=== PATIENT | female | born 1995 | race Caucasian/White ===

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

== ENCOUNTER 2017-04-26 12:10 | Outpatient (CLI) | payer OTHER ==
[~2017-04-26] VITALS: Ht 167.6 cm; Wt 77.0 kg
[2017-04-26] MEDS ORDERED: PRENTAB9 PO (12:23)
[2017-04-26 12:31] VITALS: BP 113/70
[2017-04-26 13:16] VITALS: BP 113/62
--- NOTE | 2017-04-26 22:18 | HPE ---
DATE OF ADMISSION: 04/26/2017 This a 21-year-old 1, para 1, single female with a history of a hypotensive episode at work today. She had no loss of consciousness. No loss of fluid or vaginal bleeding. She had no seizures, and she caught herself before she actually went down on the floor. Her last menstrual period (LMP) is 11/13/2016, estimated date of confinement (EDC) is 08/20/2017. She has at 23 weeks of gestation. Her risk factors: She is Rh negative. 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 She had multiple rejections and had issues at that time. She failed to eat breakfast today and has not had anything to drink. Her labs are O negative, HIV negative, hepatitis negative, RPR negative, rubella immune, Varicella immune. Urine negative. Gonorrhea and chlamydia are negative. On examination, she is in no acute distress. She is alert. She is awake. She answers questions. She is oriented to four spheres. She has no bruising. Symphysis fundus height is 23. Nontender uterus. Resting tone was normal. heart is present. She has no vaginal loss or vaginal bleeding. Blood pressure is 113/70, respirations are 18, pulse 60, temperature 98.3. Urine is 1015, pH 7, negative, negative, negative. She is not, normocephalic, atraumatic. Neck: Full range of motion. Pupils equal and reactive to light. Chest is clear bilaterally to bases. No wheezes or rhonchi. No costovertebral angle (CVA) tenderness. Abdomen was soft, nontender uterus. Four quadrant bowel sounds are noted. She has no rashes, lesions, or pruritus. No arthralgia, myalgia. No complaints of cough, wheezes, shortness of breath, or dyspnea on exertion. No chest pain. She is not bleeding. Neurologic complete. No incontinency, urgency, or frequency. No nausea, vomiting, diarrhea, or constipation. She has an unremarkable past medical and past surgical history. Her only issue is a latex allergy. She does not smoke, drink, or abuse drugs. There is no domestic violence. She has nobody here with her. After an hour of monitoring, Betke-Kleihauer done, which was negative. Blood pressure is 113/70, respirations were, again, 18, pulse 68, temperature is 93. We counseled her regarding dietary protein, requiring to eat breakfast, and also to hydrate herself. 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 If she needs emotional support we could offer that through counseling. 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 In summary, I have a 21-year-old single female who had an episode of hypotension, normotensive here, discharged undelivered as a followup on 05/09/2017.
== END 2017-04-26 13:28 | disposition home or self-care (01) ==
LOC: M LDO 12:10
PROVIDERS: ATTEND Obstetrics & Gynecology
DX: O99.89 Other specified diseases and conditions complicating pregnancy, childbirth and the puerperium (principal); Z3A.23 23 weeks gestation of pregnancy; R55 Syncope and collapse; Z91.040 Latex allergy status

== ENCOUNTER 2017-07-13 00:46 | Outpatient (CLI) | payer OTHER ==
[~2017-07-13] VITALS: Ht 167.6 cm; Wt 87.0 kg
[~2017-07-13 00:46] MED LIST: PRENTAB9 PO
[2017-07-13 00:52] VITALS: BP 125/71
== END 2017-07-13 01:56 | disposition home or self-care (01) ==
LOC: M LDO 00:46
PROVIDERS: ATTEND Obstetrics & Gynecology
DX: O26.893 Other specified pregnancy related conditions, third trimester (principal); Z3A.34 34 weeks gestation of pregnancy; R06.02 Shortness of breath; F41.9 Anxiety disorder, unspecified; Z91.040 Latex allergy status

== ENCOUNTER 2018-07-31 12:52 | Emergency (ER) | payer OTHER ==
[2018-07-31] MEDS: predniSONE 20 MG TAB PO (14:38)
== END 2018-07-31 14:48 | disposition home or self-care (01) ==
LOC: M ED 12:52
DX: J06.9 Acute upper respiratory infection, unspecified (principal)
CPT/HCPCS: 87633

== ENCOUNTER 2018-10-15 16:33 | Emergency (ER) | payer OTHER | END 2018-10-15 17:19 | disposition home or self-care (01) | LOC: M ED 16:33 | DX: S90.31XA Contusion of right foot, initial encounter (principal); V09.9XXA Pedestrian injured in unspecified transport accident, initial encounter; Y92.099 Unspecified place in other non-institutional residence as the place of occurrence of the external cause; Y93.9 Activity, unspecified; Y99.9 Unspecified external cause status; Z91.040 Latex allergy status | CPT/HCPCS: 73630 ==

== ENCOUNTER 2019-03-04 13:16 | Emergency (ER) | payer OTHER ==
[~2019-03-04] VITALS: Ht 167.6 cm; Wt 79.5 kg
[~2019-03-04 13:16] MED LIST changes: +CHLO1.4S2 MT; +IBUP-1022 PO; +PRED20TA PO; +TYLE325T5 PO
[2019-03-04] MEDS ORDERED: TIZA2TA (13:27)
[2019-03-04] MEDS ORDERED: CYMB1CAP4 PO (13:27)
--- NOTE | 2019-03-04 14:09 | REP ---
Lumbar spine five views: There are no comparisons. There is lumbarization of the S1 segment resulting in six lumbar segments. 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 Vertebral body heights, interspacing alignment are normal. The pedicles and facets are unremarkable. The sacroiliac articulations are unremarkable. 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 Electronically Signed by Gustavo Mobley MD 03/04/2019 01:58 P
[2019-03-04] MEDS ORDERED: KETOROLAC 60 MG/2 ML VIAL (J1885) IM ONE (14:15)
[2019-03-04] MEDS ORDERED: methylPREDNISolone INJ 125 MG/2 ML VIAL (J2930) IM ONE (15:00)
[2019-03-04] MEDS ORDERED: ROBA500T PO (15:04)
[2019-03-04 15:20] VITALS: BP 109/71
--- NOTE | 2019-03-04 19:30 | ED PDOC ---
Post-Departure Follow-Up ft keisha serrano faxed formal report of ls spine xray for fu Tatiana Garcia MD Mar 04, 2019 19:30
== END 2019-03-04 15:27 | disposition home or self-care (01) ==
LOC: M ED 13:16
DX: M54.5 Low back pain (principal)
CPT/HCPCS: 72110; 96372; 99283; J1885; J2930

== ENCOUNTER → 2019-03-05 | Outpatient (REF) | payer OTHER ==
[~2019-03-05] MED LIST changes: +CYMB1CAP4 PO; +ROBA500T PO; +TIZA2TA
[2019-03-05 17:49] LABS: INR 1.08; PROTHROMBIN TIME 14.1 SECONDS (12.1-14.4)
[2019-03-05 17:50] LABS: PARTIAL THROMBOPLASTIN TIME 27.5 SECONDS (25.4-37.6)
== END ==
LOC: M LABDRAW1 15:50
PROVIDERS: ATTEND Physician Assistant
DX: Z79.01 Long term (current) use of anticoagulants (principal); D69.1 Qualitative platelet defects

== ENCOUNTER 2019-06-16 17:39 | Emergency (ER) | payer OTHER ==
[~2019-06-16] VITALS: Ht 167.6 cm; Wt 83.2 kg
[2019-06-16] MEDS ORDERED: diphenhydrAMINE 25 MG CAP PO ONE (20:45)
[2019-06-16] MEDS ORDERED: METOCLOPRAMIDE 10 MG TAB PO ONE (21:00)
[2019-06-16] MEDS ORDERED: KETOROLAC TROMETHAMINE 10 MG TAB PO ONE (21:00)
[2019-06-16 21:02] LABS: BASO % 0.5 % (0.0-1.0); EOS # 0.2 10^3/uL (0.0-0.50); EOS % 2.9 % (0.0-3.0); HEMATOCRIT 38.6 % (36.0-47.0); HEMOGLOBIN 13.6 g/dl (12.0-15.5); LYMPH # 2.4 10^3/uL (1.5-6.5); LYMPH % 31.5 % (24.0-44.0); MEAN CORPUSCULAR HEMOGLOBIN 31.1 pg (27.0-33.0); MEAN CORPUSCULAR HGB CONC 35.2 g/dl (32.0-36.5); MEAN CORPUSCULAR VOLUME 88.1 fl (80.0-96.0); MONO # 0.4 10^3/uL (0.0-0.8); MONO % 4.9 % (0.0-5.0); NEUTROPHILS # 4.5 10^3/uL (1.8-7.7); NEUTROPHILS % 59.8 % (36.0-66.0); PLATELET COUNT, AUTOMATED 223 10^3/uL (150-450); RED BLOOD COUNT 4.38 10^6/uL (4.00-5.40); WHITE BLOOD COUNT 7.5 10^3/uL (4.0-10.0)
--- NOTE | 2019-06-16 21:44 | REPVR ---
EXAM: CT Head Without Contrast EXAM DATE/TIME: 06/16/2019 9:24 PM CLINICAL HISTORY: 24 years old, female; Pain; Headache; Additional info: Orbital MARSHALL x 1mo, intractable TECHNIQUE: Imaging protocol: Computed tomography images of the head without contrast. Radiation optimization: All CT scans at this facility use at least one of these dose optimization techniques: automated exposure control; mA and/or kV adjustment per patient size (includes targeted exams where dose is matched to clinical indication); or iterative reconstruction. COMPARISON: No relevant prior studies available. FINDINGS: Brain: No CT evidence of acute intracranial hemorrhage or acute territorial infarction. No significant mass effect or midline shift. Basal cisterns patent. Ventricles: Normal in size and configuration. Bones/joints: No acute osseous abnormality. Sinuses: Mild left ethmoid mucosal thickening. Mastoid air cells: Grossly unremarkable. Soft tissues: Grossly unremarkable. IMPRESSION: 1. No CT evidence of acute intracranial pathology. 2. Additional findings, as above. Electronically signed by: Ashvin De La Rosa On 06/16/2019 21:44:36 PM
[2019-06-16 21:52] VITALS: BP 117/70
[2019-06-16] MEDS ORDERED: KETO10TAB PO (23:12)
[2019-06-16] MEDS ORDERED: REGL10TA6 PO (23:12)
[2019-06-19 00:08] LABS: Lyme Disease IgG/IgM Antibodie <0.91 ISR (0.00-0.90); Lyme Disease IgM Ab Quantitati <0.80 index (0.00-0.79)
== END 2019-06-16 23:27 | disposition home or self-care (01) ==
LOC: M ED 17:39
DX: R51 Headache (principal); H53.8 Other visual disturbances; R42 Dizziness and giddiness

== ENCOUNTER 2019-09-15 09:40 | Emergency (ER) | payer OTHER ==
[~2019-09-15] VITALS: Ht 167.6 cm; Wt 95.0 kg
[~2019-09-15 09:40] MED LIST changes: +KETO10TAB PO; +REGL10TA6 PO
[2019-09-15 09:41] VITALS: BP 129/74
[2019-09-15] MEDS ORDERED: ERYTOIN8 OD (10:07)
== END 2019-09-15 10:30 | disposition home or self-care (01) ==
LOC: M ED 09:40
DX: H10.31 Unspecified acute conjunctivitis, right eye (principal); Z91.040 Latex allergy status